=== PATIENT | male | born 1990 | race Two or more races ===

== ENCOUNTER → 2023-11-27 | Emergency (ER) | payer OTHER ==
[~2023-11-27] VITALS: Ht 185.4 cm; Wt 86.2 kg
[~2023-11-27] MED LIST: CLONAZEPAM1 MG PO; KETOROLAC TROMETHAMINE 30 MG VIAL IM STA
[2023-11-27 18:03] LABS: HEMATOCRIT 46.1 % (39.0-48.0); HEMOGLOBIN 16.3 g/dL (13-16.00); MEAN CELL VOLUME 89.5 fL (80.0-100.00); MEAN CORPUSCULAR HEMOGLOBIN 31.7 pg (27.00-32.0); MEAN CORPUSCULAR HGB CONC 35.4 g/dl (32.0-36.0); PLATELET COUNT 225 K/uL (150-450); RED BLOOD COUNT 5.15 M/uL (4.00-6.00); RED CELL DISTRIBUTION WIDTH 13.3 % (11.5-14.5)
[2023-11-27 18:14] LABS: CALCIUM 9.4 mg/dL (8.5-10.1); CREATININE SERUM 0.99 mg/dL (0.70-1.30); GFR 87.06; POTASSIUM 3.73 mEq/L (3.5-5.1)
[2023-11-27 19:24] LABS: PH,URINE 5.5 (5.0-8.0); URINE APPEARANCE Clear; URINE BILIRRUBIN Negative (NEGATIVE); URINE BLOOD Trace; URINE COLOR Yellow; URINE EPITHELIAL CELLS 2.9 uL (0.0-38.8); URINE GLUCOSE Negative (NEGATIVE); URINE LEUKOCYTE Negative; URINE NITRATE Negative; URINE PROTEIN Negative (NEGATIVE); URINE UROBILINOGEN 0.2 E.U./dl; URINE WBC 7.7 uL (0.0-23.2)
[2023-11-27 19:29] LABS: URINE BACTERIA 3.7 uL (0.0-1933)
== END | disposition left against medical advice (07) ==
LOC: ER 16:33
PROVIDERS: General Practice
DX: N50.811 Right testicular pain (principal)